=== PATIENT | female | born 1980 | race Caucasian/White ===

== ENCOUNTER 2017-02-26 00:44 | Emergency (ER) | payer OTHER ==
[~2017-02-26] VITALS: Ht 152.4 cm; Wt 102.1 kg
[~2017-02-26 00:44] MED LIST: IBU-8800 MG PO; PREDNISONE20 MG PO; ROBITUSSIN AC 110 ML PO; SOMA350 MG PO; TRAMADOL HCL50 MG PO; ZITHROMAX Z PA250 MG PO
[2017-02-26] MEDS ORDERED: PROAIR HFA8.5 GM INH (01:53)
[2017-02-26] MEDS ORDERED: PREDNISONE10 MG PO (01:53)
== END 2017-02-26 02:52 | disposition home or self-care (01) ==
LOC: ED 00:44
DX: J45.901 Unspecified asthma with (acute) exacerbation (principal); F17.200 Nicotine dependence, unspecified, uncomplicated

== ENCOUNTER 2017-02-28 10:33 | Inpatient (IN) | payer OTHER ==
[~2017-02-28] VITALS: Ht 152.4 cm; Wt 110.7 kg
--- NOTE | ~2017-02-28 | PR ---
[place], [place] PROGRESS NOTE NAME: MANUEL MUSA UNIT #: [id number] ROOM: 407 DOCTOR: KERRIE BEASLEY MD BIRTHDATE: [birth year] DOS: 03/02/2017 PULMONARY FOLLOWUP NOTE SUBJECTIVE: The patient has been noted with partial reduction in the respiratory symptoms from yesterday, was continued on high dose of corticosteroids, bronchodilator for the patient frequently and the antibiotics as well. The coughing has been noted somewhat decreased with reduction in the wheezing and shortness of breath. OBJECTIVE: VITAL SIGNS: Showed normal temperature, respiratory rate 18, heart rate 74, blood pressure 129/70. Pulse oxygen saturation noted on 2 liters nasal cannula 96% saturation. HEENT: Head was atraumatic. Moderate obesity. NECK: Supple. CARDIOVASCULAR SYSTEM: S1, S2 audible. LUNGS: Diffuse expiratory wheezing was noted with partial reduction as compared to previous examination. There were no crackles. ABDOMEN: Soft, nontender. LABORATORY DATA: CBC, 03/02/2017, WBC count 18.9. Remaining CBC was normal. Culture of the sputum for the patient preliminary showing normal reginaldo from yesterday. Gram stain shows moderate white blood cells, few epithelial cells, moderate gram-positive cocci in pairs and clusters with moderate gram-positive bacilli. CT of the was noted unremarkable for any cardiopulmonary abnormality or any evidence of pulmonary embolism. IMPRESSION: The patient with severe acute exacerbation of bronchial asthma for this patient with acute tracheobronchitis with partial improvement occurred from yesterday with current plan of treatment. PLAN OF TREATMENT: No changes in the plan for this patient. Continue current dose of steroids. No changes need to be made. Other supportive therapy, plan of care. Usual treatment. Supportive plan of management as previously in progress. [place], [place] PROGRESS NOTE NAME: MANUEL MUSA UNIT #: [id number] ROOM: 407 DOCTOR: KERRIE BEASLEY MD BIRTHDATE: [birth year] KERRIE BATES MD CM:PNTRANS [id number] KERRIE STANFORD MD 03/03/17 0053 interface
--- NOTE | ~2017-02-28 | CON ---
[place], [place] REPORT OF CONSULTATION NAME: [id number] UNIT #: [id number] ROOM: 407 DOCTOR: PAULO STANFORD MDKERRIE BIRTHDATE: [birth year] DOS: 03/01/2017 PULMONARY CONSULTATION EVALUATION AND MANAGEMENT CONSULTATION REQUESTED BY: Hospitalist services. REASON FOR CONSULTATION: Assess the patient for ongoing acute respiratory complaints. HISTORY OF PRESENT ILLNESS: This is a 36 years old white female without any known diagnosis of COPD, bronchial asthma, presented to the emergency room. The patient developed symptoms of increased chest congestion, coughing since last Tuesday. The symptoms have been noted progressive worsening with the cough which was noted nonproductive and noted severe. The patient has been noted symptoms of wheezing with that, which is described as severe with the tightness in the chest. Shortness of breath was occurring with [id number] exertional activities. The patient denies any symptoms of hemoptysis. She has been treated with the corticosteroids high dose for the patient and noted ongoing acute exacerbation of bronchial asthma. REVIEW OF SYSTEMS: CONSTITUTIONAL SYMPTOMS: Fatigue and tiredness noted without symptoms of fever or chills. EYES: Denies any burning, redness, or tenderness. EARS, NOSE, AND THROAT SYMPTOMS: No sore throat, hoarseness, otalgia, postnasal drainage or epistaxis. CARDIOVASCULAR SYSTEM: Denies anginal pain, edema or pain of the lower extremities. GASTROINTESTINAL SYMPTOMS: Denies dysphagia, nausea, vomiting, diarrhea, abdominal pain, hematemesis, melena, or hematochezia. SKIN: Denies lesions or rashes. MUSCULOSKELETAL SYMPTOMS: Denies acute joint pain, redness, or tenderness. CENTRAL NERVOUS SYSTEM: Denies dizziness, headache, diplopia, syncopal episodes or seizures. Remaining systems were reviewed and they are noted all negative. PAST MEDICAL HISTORY: 1. Was noted for the patient history of recurrent bronchitis described twice a week. 2. History of chronic nicotine dependence. 3. Severe obesity. SOCIAL HISTORY: The patient stated that she is , has step children. Smoking was started for this patient at the age of 16-17 years old for this patient as 1 pack of cigarettes per day. PAST SURGICAL HISTORY: Noted tonsillectomy. FAMILY HISTORY: The patient's father for the patient age of [age] years old [place], [place] REPORT OF CONSULTATION NAME: MANUEL MUSA UNIT #: [id number] ROOM: 407 DOCTOR: KERRIE BEASLEY MD BIRTHDATE: [birth year] complication of pancreatic cancer. Mother is living of the patient history of morbid obesity and COPD. HOME MEDICATIONS: Noted, 1. ProAir HFA inhaler. 2. Tapering dose of prednisone recently prescribed. DRUG ALLERGIES: Noted for no known drug allergies. PHYSICAL EXAMINATION: GENERAL: This is a 36 years old white female who has been noted with audible wheezing at this time with mild tachypnea at rest. On examination height was noted 5 feet, weight of 244 pounds, BMI 47.6. VITAL SIGNS: For the patient which were recorded showed the temperature noted as normal. The respiratory rate of 18, heart rate of 80, blood pressure 136/82-146/72. Intake for the patient recorded 2470 mL, output 1150 mL. Pulse oxygen saturation 3 liters nasal cannula 96% saturation. HEENT: Examination shows head was atraumatic. Eyes nonicterus. NECK: Supple. CARDIOVASCULAR SYSTEM: S1, S2 is audible. LUNGS: The patient was noted without any crackles. Diffuse expiratory wheezing was noted in the lungs with reduced breath sounds bilaterally. ABDOMEN: Soft, obese, nontender. EXTREMITIES: Show no edema, clubbing, cyanosis. CENTRAL NERVOUS SYSTEM: Cranial nerves 2-12 intact. No focal deficits. MUSCULOSKELETAL SYMPTOMS: Without any acute deformities. LABORATORY DATA: The lactic acid 1.7 noted on admission 02/28/2017. 02/28/2017, PT, PTT was normal. CMP of the patient on 02/28/2017 noted as normal BUN and creatinine and the other labs. The CBC of patient on 02/28/2017, hemoglobin 19.4, 50.7, hematocrit 45.2, platelet count was normal. Troponin for the patient was noted as normal. The CBC of the patient that was done this morning, WBC count 15.6, remaining CBC was normal. CMP of the patient this morning, glucose 165, BUN and creatinine was normal. PT/INR for the patient this morning was noted as normal. The chest x-ray of the patient that was done for the patient on admission for the patient was essentially noted as hyperinflation without any acute pulmonary infiltration. IMPRESSION: 1. The patient who has been currently admitted to the hospital, appeared to have a severe acute exacerbation of bronchial asthma for the patient associated acute viral or bacterial bronchitis, which has noted progression for the past 3 days since admission. 2. Chronic tobacco use for this patient as well known. 3. Morbid obesity of the patient as well. PLAN OF TREATMENT: Continue current dose of corticosteroids. Nicotine replacement patches were ordered for this patient, but the patient does not wish to use them at that time. Symptomatic management of cough. Bronchodilator will be given for the patient every 4 hours and q. 2 hour p.r.n. Continuation of [place], [place] REPORT OF CONSULTATION NAME: MNAUEL MUSA UNIT #: [id number] ROOM: 407 DOCTOR: PAULO STANFORD MD,KERRIE BIRTHDATE: [birth year] current antibiotics. Sputum for Gram stain culture if the patient expectorates sputum. The cough has been mostly noted nonproductive. If the patient does not respond to the treatment in the next couple of days I will assess the patient for possible bronchoscopy. Other supportive therapy, plan of management, other care. Usual treatment, all other supportive care and treatments and therapies. KERRIE BATES MD CM:CONSTR:REPORT OF CONSULTATION 1429 03/02/17 0737 interface
--- NOTE | ~2017-02-28 | PR ---
[place], [place] PROGRESS NOTE NAME: MANUEL MUSA UNIT #: [id number] ROOM: 407 DOCTOR: PAULO STANFORD MD,KERRIE BIRTHDATE: [birth year] DOS: 03/03/2017 SUBJECTIVE: She has been noted with significant reduction and improvement and resolution of the acute symptoms. The patient with improvement, coughing, wheezing, and shortness breath. OBJECTIVE: VITAL SIGNS: Normal temperature, respiratory rate 18, heart rate 78, blood pressure . Pulse ox saturation on room air 97% saturation. HEENT: Showed no new change. NECK: Supple. CARDIOVASCULAR: S1, S2 audible. LUNGS: The patient was noted without any wheezing or crackles. ABDOMEN: Soft, nontender. IMPRESSION: Marked improvement and resolution of the acute severe bronchial asthma. The patient was noted with current medical management with progressive reduction and improvement in the symptoms. Acute bacterial bronchitis, also improving. PLAN OF TREATMENT: The patient could be considered for home discharge on oral antibiotics and tapering dose of prednisone. Other treatment for patient to be done as previously. Usual care. Supportive plan of management and therapies. KERRIE BATES MD CM:SAMI [id number] KERRIE STANFORD MD 03/03/17 2249 interface
[~2017-02-28 10:33] MED LIST changes: +PREDNISONE10 MG PO; +PROAIR HFA8.5 GM INH
[2017-02-28 10:45] VITALS: BP 175/105
[2017-02-28 11:07] LABS: HEMATOCRIT 45.2 % (37.0-47.0); HEMOGLOBIN 15.7 g/dl (12.0-16.0); MEAN CELL VOLUME 85.1 fl (81.0-99.0); MEAN CORPUSCULAR HGB 29.6 pg (27.0-31.0); MEAN CORPUSCULAR HGB CONC 34.7 g/dl (33.0-37.0); MEAN PLATELET VOLUME 10.4 fl (9.6-12.3); PLATELET COUNT AUTOMATED 350 10*3/uL (130-400); RED BLOOD COUNT 5.31 10*6/uL (4.10-5.10); RED CELL DISTRI WIDTH 13.3 % (0-14.5); WHITE BLOOD COUNT 19.4 10*3/uL (4.8-10.8)
[2017-02-28 11:16] LABS: INTERNATIONAL NORM RATIO 0.9 (2.0-3.5); PROTHROMBIN TIME 9.8 SECONDS (9.0-12.4)
[2017-02-28 11:24] LABS: ALBUMIN 3.9 gm/dl (3.1-4.5); ALKALINE PHOSPHATASE 87 U/L (45-117); BILIRUBIN, TOTAL 0.3 mg/dl (0.2-1.0); BUN 18 mg/dl (7-24); C-REACTIVE PROTEIN 0.37 MG/DL (0-0.3); CARBON DIOXIDE 22 mmol/L (21-32); CHLORIDE 111 mmol/L (98-107); CKMB 0.6 ng/ml (0.5-3.6); CPK 103 U/L (26-192); EST GLOM FILT AFRICAN AMERICAN > 60 ml/min; GLUCOSE 72 mg/dL (65-99); MAGNESIUM 2.6 mg/dL (1.5-2.1); POTASSIUM 3.8 mmol/L (3.5-5.1); SGOT/AST 9 IU/L (3-35); SGPT/ALT 17 U/L (12-78); SODIUM 144 mmol/L (136-145); TOTAL PROTEIN 7.6 gm/dL (6.4-8.2); TROPONIN I < 0.015 ng/ml (<0.045)
[2017-02-28 11:25] LABS: ATYPICAL LYMPHS 2 % (0-0); EOSINOPHIL # 0.2 10*3/uL (0-0.4); EOSINOPHILS 1 % (1-4); LYMPHOCYTE # 6.4 10*3/uL (1.3-4.4); MONOCYTE # 1.4 10*3/uL (0.1-1.0); NEUTROPHIL # 11.4 10*3/uL (2.3-7.9); NEUTROPHILS 59 % (47-73); PLATELET SUFFICIENCY NORMAL (NORMAL); TOTAL CELLS COUNTED 100 #CELLS
[2017-02-28 12:51] VITALS: BP 124/71
[2017-02-28 13:33] VITALS: BP 128/92
[2017-02-28 16:00] VITALS: BP 142/73
[2017-02-28 20:00] VITALS: BP 174/76
[2017-03-01] VITALS: BP 153/74
[2017-03-01 07:08] LABS: HEMATOCRIT 41.3 % (37.0-47.0); IG # 0.1 10*3/uL (0.0-0.1); LYMPH # 1.7 10*3/uL (1.3-4.4); LYMPH % 10.8 % (27.0-41.0); MEAN CELL VOLUME 87.7 fl (81.0-99.0); MEAN CORPUSCULAR HGB 29.7 pg (27.0-31.0); MEAN CORPUSCULAR HGB CONC 33.9 g/dl (33.0-37.0); MEAN PLATELET VOLUME 10.7 fl (9.6-12.3); MONO # 0.2 10*3/uL (0.1-1.0); NEUT # 13.6 10*3/uL (2.3-7.9); NEUT % 87.5 % (47.0-73.0); PLATELET COUNT AUTOMATED 273 10*3/uL (130-400); RED BLOOD COUNT 4.71 10*6/uL (4.10-5.10); RED CELL DISTRI WIDTH 13.6 % (0-14.5); WHITE BLOOD COUNT 15.6 10*3/uL (4.8-10.8)
[2017-03-01 07:25] LABS: ALBUMIN 3.4 gm/dl (3.1-4.5); BILIRUBIN, TOTAL 0.3 mg/dl (0.2-1.0); BUN 18 mg/dl (7-24); CARBON DIOXIDE 21 mmol/L (21-32); CHLORIDE 108 mmol/L (98-107); CHOLESTEROL 238 mg/dL (<200); EST GLOM FILT AFRICAN AMERICAN > 60 ml/min; FREE T4 1.01 ng/dl (0.76-1.46); GLUCOSE 165 mg/dL (65-99); HDL CHOLESTEROL 60 mg/dl (40-60); LDL CHOLESTEROL 164 mg/dL (9-159); MAGNESIUM 2.5 mg/dL (1.5-2.1); POTASSIUM 4.2 mmol/L (3.5-5.1); SGOT/AST 6 IU/L (3-35); SGPT/ALT 17 U/L (12-78); SODIUM 141 mmol/L (136-145); TOTAL PROTEIN 6.8 gm/dL (6.4-8.2); TRIGLYCERIDES 72 mg/dl (<150); VLDL CHOLESTEROL 14 mg/dL (6-40)
[2017-03-01 07:29] LABS: ALKALINE PHOSPHATASE 73 U/L (45-117)
[2017-03-01 07:36] LABS: HEMOGLOBIN A1c 5.5 % (4.8-5.6)
[2017-03-01 07:46] LABS: PROTHROMBIN TIME 10.3 SECONDS (9.0-12.4)
[2017-03-01 08:00] VITALS: BP 146/72
[2017-03-01 08:05] LABS: FOLIC ACID 7.18 ng/mL (>5.38)
[2017-03-01 12:00] VITALS: BP 136/82
[2017-03-01 16:00] VITALS: BP 153/77
[2017-03-01 20:00] VITALS: BP 145/75
[2017-03-02] VITALS: BP 129/83
[2017-03-02 07:29] LABS: BASO % 0.1 % (0.0-1.0); HEMATOCRIT 41.7 % (37.0-47.0); HEMOGLOBIN 13.8 g/dl (12.0-16.0); IG # 0.2 10*3/uL (0.0-0.1); LYMPH # 1.7 10*3/uL (1.3-4.4); LYMPH % 8.8 % (27.0-41.0); MEAN CELL VOLUME 89.5 fl (81.0-99.0); MEAN CORPUSCULAR HGB 29.6 pg (27.0-31.0); MEAN CORPUSCULAR HGB CONC 33.1 g/dl (33.0-37.0); MEAN PLATELET VOLUME 10.4 fl (9.6-12.3); MONO # 0.5 10*3/uL (0.1-1.0); MONO % 2.4 % (3.0-9.0); NEUT # 16.6 10*3/uL (2.3-7.9); NEUT % 87.6 % (47.0-73.0); PLATELET COUNT AUTOMATED 302 10*3/uL (130-400); RED BLOOD COUNT 4.66 10*6/uL (4.10-5.10); RED CELL DISTRI WIDTH 13.6 % (0-14.5); WHITE BLOOD COUNT 18.9 10*3/uL (4.8-10.8)
[2017-03-02 08:00] VITALS: BP 129/70
[2017-03-02 12:00] VITALS: BP 186/79
[2017-03-02 16:00] VITALS: BP 157/86
[2017-03-02 20:00] VITALS: BP 153/82
[2017-03-03] VITALS: BP 142/78
[2017-03-03 08:00] VITALS: BP 152/76
[2017-03-03] MEDS ORDERED: PREDNISONE10 MG PO (10:03)
[2017-03-03] MEDS ORDERED: SIMVASTATIN20 MG PO (10:03)
[2017-03-03] MEDS ORDERED: D-1000 185 MG-11 TAB PO (10:03)
[2017-03-03] MEDS ORDERED: LEVAQUIN500 M2 PO (10:03)
[2017-03-03 12:00] VITALS: BP 146/76
== END 2017-03-03 12:54 | disposition home or self-care (01) | DRG 872 ==
LOC: ED 10:33 → EDHOLD 12:39 → 4E 12:39
PROVIDERS: Internal Medicine; Nurse Practitioner Family
DX: A41.9 Sepsis, unspecified organism (principal); J44.0 Chronic obstructive pulmonary disease with (acute) lower respiratory infection; J44.1 Chronic obstructive pulmonary disease with (acute) exacerbation; Z68.42 Body mass index [BMI] 45.0-49.9, adult; F17.210 Nicotine dependence, cigarettes, uncomplicated; Z80.0 Family history of malignant neoplasm of digestive organs; J20.9 Acute bronchitis, unspecified; Z71.6 Tobacco abuse counseling; E83.41 Hypermagnesemia; R79.82 Elevated C-reactive protein (CRP); E66.01 Morbid (severe) obesity due to excess calories

== ENCOUNTER 2017-03-08 10:13 | Inpatient (IN) | payer OTHER ==
[~2017-03-08] VITALS: Ht 152.4 cm; Wt 109.3 kg
--- NOTE | ~2017-03-08 | PR ---
[place], [place] PROGRESS NOTE NAME: MANUEL MUSA UNIT #: [id number] ROOM: 403 DOCTOR: KERRIE BEASLEY MD BIRTHDATE: [birth year] DOS: 03/10/2017 PULMONARY PROGRESS NOTE SUBJECTIVE: The patient had bronchoscopy done yesterday with significant reduction and improvement of respiratory symptoms noted. She denies symptoms of chest pain, coughing, wheezing, and other symptoms have been resolving progressively. OBJECTIVE: VITAL SIGNS: Shows normal temperature, respiratory rate 20, heart rate 70, blood pressure 135/73. The oxygen saturation of the patient was noted on room air as 98% saturation this morning. HEENT: Chronic moderate severe obesity. NECK: Supple. CARDIOVASCULAR: S1, S2 audible. LUNGS: Noted clear of any wheezing or crackles. ABDOMEN: Soft, nontender. LABORATORY DATA: Gram stain of the bronchial washing few white blood cells, epithelial cells with moderate gram-positive cocci, gram-positive bacilli, few gram-positive cocci in cluster, rare gram-negative bacilli, preliminary culture reported as normal reginaldo. The blood culture from the showed no bacterial growth. Final culture results were pending. IMPRESSION: 1. The patient with progressive resolution and improvement in the respiratory symptoms of acute exacerbation of bronchial asthma and acute bronchitis with removal of mucus plug of the major airways. 2. History of chronic morbid obesity. PLAN OF TREATMENT: From the pulmonary standpoint, she could be discharged on tapering dose of prednisone and any oral antibiotics for the patient. She should also be started on the Dulera for this patient, resume her medications in outpatient. Prescription to be given to the patient before discharge. Outpatient followup suggested in a couple of weeks post discharge from the hospital. [place], [place] PROGRESS NOTE NAME: MANUEL MUSA UNIT #: [id number] ROOM: 403 DOCTOR: KERRIE BEASLEY MD BIRTHDATE: [birth year] KERRIE BATES MD CM:PNTRANS [id number] KERRIE STANFORD MD 03/11/17 0520 interface
--- NOTE | ~2017-03-08 | CON ---
[place], [place] REPORT OF CONSULTATION [id number] #: [id number] ROOM: 403 DOCTOR: KERRIE BEASLEY MD BIRTHDATE: [birth year] DOS: 03/09/2017 PULMONARY CONSULTATION EVALUATION AND MANAGEMENT CONSULTATION ORDERED BY: Hospitalist services. REASON FOR CONSULTATION: To assess the patient for recurrent exacerbation of bronchial asthma. HISTORY OF PRESENT ILLNESS: This is a 36-year-old white female, very well known to me. The patient has been recently admitted in this hospital, treated for severe acute exacerbation of bronchial asthma. The patient was discharged home after 3 days of treatment with high dose steroids, which was gradually decreased, on oral prednisone, short acting bronchodilators and antibiotics. The patient discharged on 03/03/2017. She presented back to the hospital. The patient re-admitted to the hospital on 03/08/2017. The patient stated that the symptoms of shortness of breath has been noted significant worsening for this patient at home. She has been noted with increased shortness of breath. The patient with excessive severe coughing. Later on she started with wheezing for the patient as well, which has been noted progressive worsening with tightness in the chest. The patient was seen in the residents clinic for followup of exacerbation and was sent to the Emergency Room after assessment this patient because of acute exacerbation of COPD. The patient denies any symptoms of chest pain. She noted partial improvement in symptoms of wheezing and shortness of breath for this patient, but the improvement has been noted incomplete. The coughing has been still noted moderate severe and nonproductive at this time. The patient denies any symptoms of hemoptysis. She stated that she has been taking all of the prescription medications, which has been ordered previously for this patient upon discharge. REVIEW OF SYSTEMS: CONSTITUTIONAL: The patient noticed symptom of fatigue and tiredness. Denies any fever or chills. EYES: Denies any blurry vision dryness of the eyes, eye discharge or burning pain, EARS, NOSE, THROAT: No sore throat, hoarseness, otalgia, postnasal drainage. CARDIOVASCULAR: Denies anginal pain, edema or pain of the lower extremities. GASTROINTESTINAL: Denies dysphagia, nausea, vomiting, diarrhea, abdominal pain, hematemesis, melena, hematochezia, or abnormal weight loss history. History of chronic severe morbid obesity for the patient was known. SKIN: Denies lesions or rashes. MUSCULOSKELETAL: Denies any joint pain, redness, or tenderness. CENTRAL NERVOUS SYSTEM: Denies any dizziness, headache, diplopia or seizures. Remaining systems were reviewed with the patient, they were noted all negative. PAST MEDICAL HISTORY: 1. The patient is known with history of bronchial asthma, most likely uncomplicated, severe persistent bronchial asthma, ____ for further assessment. 2. History of past nicotine abuse. [place], [place] REPORT OF CONSULTATION NAME: MANUEL MUSA UNIT #: [id number] ROOM: [facility] DOCTOR: PAULO STANFORD MD,[facility] BIRTHDATE: [birth year] 3. Morbid obesity. SOCIAL HISTORY: The patient is . She lives at home. Denies any history of alcohol use or any illicit drug use. Tobacco use noted since age 14 or 15 years old, about a pack of cigarettes per day. PAST SURGICAL HISTORY: The patient noted with surgical history for tonsillectomy and adenoidectomy. FAMILY HISTORY: The patient's father at age of 5656 years old from complication of pancreatic cancer. Mother is living with severe morbid obesity and known history of COPD as well. HOME MEDICATIONS: Noted the recent dose of tapering prednisone and ProAir HFA inhaler. DRUG ALLERGIES: Noted. No known drug allergies. PHYSICAL EXAMINATION: GENERAL: A 36-year-old female, currently assessed, noted awake and alert. Height of 5 feet, weight of 109 kilograms, BMI 47.0. VITAL SIGNS: For the patient which were recorded shows the temperature of the patient noted as normal. The respiratory rate of the patient was recorded as 24-18. Heart rate for the patient recorded as 70-72. Blood pressure 124/82-134/81. HEENT: Shows head was atraumatic. Eyes nonicterus. NECK: Supple. CARDIOVASCULAR: S1, S2 is audible. LUNGS: The patient was noted without any crackles, or rhonchi. Moderate expiratory wheezing was present. ABDOMEN: Soft, obese, nontender. EXTREMITIES: Show no edema, clubbing or cyanosis. LABORATORY DATA: The patient's lactic acid yesterday on admission was normal at 1.8. PT/PTT yesterday on admission normal. CBC of the patient on 03/08/2017, WBC count 25.3, hemoglobin 16.8, hematocrit 47.7, platelet count normal. CMP of the patient was noted as normal BUN and creatinine. Remaining electrolytes grossly normal. Troponin was noted normal yesterday. CBC this morning, WBC count 23.2, hemoglobin and hematocrit were normal. Platelet count normal, 90% segmented neutrophils. BMP of the patient shows glucose 158, BUN and creatinine was normal. One view chest x-ray of the patient that was done yesterday, the patient, reviewed, does not show any acute pulmonary infiltration for this patient, area of atelectasis was suspected in the left lower lung. IMPRESSION: 1. The patient known to me currently admitted to the hospital noted with recurrent acute exacerbation of chronic obstructive pulmonary disease with additional area of atelectasis suspected, mucus impaction of major airways. 2. History of morbid obesity. 3. History of past nicotine abuse. [place], [place] REPORT OF CONSULTATION NAME: MANUEL MUSA UNIT #: [id number] ROOM: [facility] DOCTOR: KERRIE BEASLEY MD BIRTHDATE: [birth year] PLAN OF TREATMENT: The patient will benefit from fiberoptic bronchoscopy. The risks and benefits of the procedure were discussed with the patient. She has been kept n.p.o. past midnight and she was agreeable for the procedure. The consent was obtained for the procedure. The dose of corticosteroids at this time will be continued as previously ordered. Further changes in the medical management done accordingly. Continue current antibiotics. Repeat another chest x-ray for the patient tomorrow morning to reassess the current area of atelectasis. Leukocytosis is most likely induced by the corticosteroids. The patient will be continued to be monitored. Supportive therapy and the plan of management for the patient will continue. Usual care. All other treatment plan and management. Any decision or changes in the treatment necessary will be done after bronchoscopy. The patient has been started on Dulera as well for the long-term management of bronchial asthma in the patient, which will be continued post discharge as well. Thank you for allowing me to participate in the care of this patient. KERRIE BATES MD CM:CONSTR:REPORT OF CONSULTATION 1220 03/10/17 0512 interface
--- NOTE | ~2017-03-08 | PROC NOTE ---
[place], [place] PROCEDURE NOTE NAME: MANUEL MUSA UNIT #: [id number] ROOM: 403 DOCTOR: PAULO STANFORD MD,KERRIE BIRTHDATE: [birth year] DOS: 03/09/2017 PROCEDURE: Fiberoptic bronchoscopy. PREOPERATIVE DIAGNOSES: Persistent cough and wheezing in the patient without any sputum expectoration, ongoing bronchial asthma exacerbation, and significant leukocytosis. POSTOPERATIVE DIAGNOSES: Removal of multiple plugs and mucus from endobronchial tree bilaterally. FINDINGS: Acute tracheobronchitis. PROCEDURE DESCRIPTION: Informed consent obtained for the patient. She was brought to the OR and placed in supine position. Conscious sedation administered by the Anesthesia Department. After achieving appropriate sedation, airway introduced into the mouth. Bronchoscope advanced into the airway into laryngeal area. Epiglottis and vocal cords were seen. Vocal cords moving symmetrically with movements and yellowish in color. All secretions suctioned out with the help of normal saline wash and sent for cultures. The mucus plug for the patient from the right upper, right middle, right lower, left upper, lingular, and lower lobe. Procedure was well tolerated by the patient. Postoperative findings will be discussed with the patient once the patient recovers the effects of acute sedation. KERRIE BATES MD CM:PROCNOTE:PROCEDURE NOTE [id number] KERRIE STANFORD MD
[~2017-03-08 10:13] MED LIST changes: +D-1000 185 MG-11 TAB PO; +LEVAQUIN500 M2 PO; +SIMVASTATIN20 MG PO
[2017-03-08 10:15] VITALS: BP 115/60
[2017-03-08 10:55] LABS: HEMATOCRIT 47.7 % (37.0-47.0); HEMOGLOBIN 16.4 g/dl (12.0-16.0); MEAN CELL VOLUME 85.9 fl (81.0-99.0); MEAN CORPUSCULAR HGB 29.5 pg (27.0-31.0); MEAN CORPUSCULAR HGB CONC 34.4 g/dl (33.0-37.0); MEAN PLATELET VOLUME 10.1 fl (9.6-12.3); PLATELET COUNT AUTOMATED 354 10*3/uL (130-400); RED BLOOD COUNT 5.55 10*6/uL (4.10-5.10); RED CELL DISTRI WIDTH 13.2 % (0-14.5); WHITE BLOOD COUNT 25.3 10*3/uL (4.8-10.8)
[2017-03-08 11:04] LABS: INTERNATIONAL NORM RATIO 0.9 (2.0-3.5); PROTHROMBIN TIME 9.8 SECONDS (9.0-12.4)
[2017-03-08 11:14] LABS: ALBUMIN 3.5 gm/dl (3.1-4.5); ALKALINE PHOSPHATASE 75 U/L (45-117); ATYPICAL LYMPHS 1 % (0-0); BILIRUBIN, TOTAL 0.5 mg/dl (0.2-1.0); BUN 21 mg/dl (7-24); CARBON DIOXIDE 23 mmol/L (21-32); CHLORIDE 106 mmol/L (98-107); CPK 24 U/L (26-192); EOSINOPHIL # 0.5 10*3/uL (0-0.4); EOSINOPHILS 2 % (1-4); EST GLOM FILT AFRICAN AMERICAN > 60 ml/min; GLUCOSE 82 mg/dL (65-99); LYMPHOCYTE # 7.1 10*3/uL (1.3-4.4); MONOCYTE # 1.5 10*3/uL (0.1-1.0); NEUTROPHIL # 16.2 10*3/uL (2.3-7.9); NEUTROPHILS 64 % (47-73); PLATELET SUFFICIENCY NORMAL (NORMAL); POTASSIUM 4.1 mmol/L (3.5-5.1); SGOT/AST 5 IU/L (3-35); SGPT/ALT 23 U/L (12-78); SODIUM 138 mmol/L (136-145); TOTAL CELLS COUNTED 100 #CELLS
[2017-03-08 11:17] LABS: C-REACTIVE PROTEIN < 0.29 MG/DL (0-0.3); CKMB < 0.5 ng/ml (0.5-3.6); TROPONIN I < 0.015 ng/ml (<0.045)
[2017-03-08 11:49] VITALS: BP 124/82
[2017-03-08 12:11] VITALS: BP 131/78
[2017-03-08 12:19] LABS: MAGNESIUM 2.6 mg/dL (1.5-2.1)
[2017-03-08] MEDS ORDERED: NEBULIZER (15:38)
[2017-03-08 20:00] VITALS: BP 151/87
[2017-03-09] VITALS (8 sets, daily range): BP systolic 124–172; BP diastolic 54–98
[2017-03-09 06:47] LABS: HEMATOCRIT 44.3 % (37.0-47.0); MEAN CELL VOLUME 87.5 fl (81.0-99.0); MEAN CORPUSCULAR HGB 29.6 pg (27.0-31.0); MEAN CORPUSCULAR HGB CONC 33.9 g/dl (33.0-37.0); MEAN PLATELET VOLUME 10.2 fl (9.6-12.3); PLATELET COUNT AUTOMATED 316 10*3/uL (130-400); RED BLOOD COUNT 5.06 10*6/uL (4.10-5.10); RED CELL DISTRI WIDTH 13.4 % (0-14.5); WHITE BLOOD COUNT 23.2 10*3/uL (4.8-10.8)
[2017-03-09 06:59] LABS: BUN 21 mg/dl (7-24); CARBON DIOXIDE 24 mmol/L (21-32); CHLORIDE 105 mmol/L (98-107); EST GLOM FILT AFRICAN AMERICAN > 60 ml/min; GLUCOSE 158 mg/dL (65-99); POTASSIUM 4.5 mmol/L (3.5-5.1); SODIUM 139 mmol/L (136-145)
[2017-03-09 07:13] LABS: LYMPHOCYTE # 1.4 10*3/uL (1.3-4.4); MONOCYTE # 0.5 10*3/uL (0.1-1.0); NEUTROPHIL # 21.3 10*3/uL (2.3-7.9); NEUTROPHILS 92 % (47-73); PLATELET SUFFICIENCY NORMAL (NORMAL); TOTAL CELLS COUNTED 100 #CELLS
[2017-03-10] VITALS: BP 155/54
[2017-03-10 08:00] VITALS: BP 135/73
[2017-03-10] MEDS ORDERED: DULE1ARO INH (10:13)
[2017-03-10] MEDS ORDERED: PANTOPRAZOLE SO40 MG PO (10:13)
[2017-03-10] MEDS ORDERED: VENTOLIN H0.09 MG/AC INH (10:13)
[2017-03-10] MEDS ORDERED: DUONEB 3 MG/3 ML3 M1 NEB (10:13)
[2017-03-10] MEDS ORDERED: PREDNISONE10 MG PO (10:13)
[2017-03-10] MEDS ORDERED: MONTELUKAST SOD10 MG PO (10:40)
[2017-03-10 12:00] VITALS: BP 162/88
[2017-03-10 16:10] LABS: ACID FAST SPEC PROCESSING Concentration (.)
== END 2017-03-10 14:50 | disposition home or self-care (01) | DRG 202 ==
LOC: ED 10:13 → EDSTATUS 10:13 → 4E 10:32 → EDHOLD 10:32 → 4E 11:48 → RESCLI 13:13 → 4E 03-09 13:29
PROVIDERS: Emergency Medicine; Internal Medicine Critical Care Medicine; Internal Medicine Hospice and Palliative Medicine
PROC: 0BC58ZZ Extirpation of Matter from Right Middle Lobe Bronchus, Via Natural or Artificial Opening Endoscopic (ICD-10-PCS; principal; 2017-03-09)
PROC: 0BC98ZZ Extirpation of Matter from Lingula Bronchus, Via Natural or Artificial Opening Endoscopic (ICD-10-PCS; principal; 2017-03-09)
PROC: 0BC48ZZ Extirpation of Matter from Right Upper Lobe Bronchus, Via Natural or Artificial Opening Endoscopic (ICD-10-PCS; principal; 2017-03-09)
PROC: 0BC68ZZ Extirpation of Matter from Right Lower Lobe Bronchus, Via Natural or Artificial Opening Endoscopic (ICD-10-PCS; principal; 2017-03-09)
PROC: 0BC88ZZ Extirpation of Matter from Left Upper Lobe Bronchus, Via Natural or Artificial Opening Endoscopic (ICD-10-PCS; principal; 2017-03-09)
DX: J45.41 Moderate persistent asthma with (acute) exacerbation (principal); J44.0 Chronic obstructive pulmonary disease with (acute) lower respiratory infection; R65.10 Systemic inflammatory response syndrome (SIRS) of non-infectious origin without acute organ dysfunction; E83.41 Hypermagnesemia; Z68.42 Body mass index [BMI] 45.0-49.9, adult; J44.1 Chronic obstructive pulmonary disease with (acute) exacerbation; J20.9 Acute bronchitis, unspecified; E66.01 Morbid (severe) obesity due to excess calories; F17.210 Nicotine dependence, cigarettes, uncomplicated; Z71.6 Tobacco abuse counseling; Z80.0 Family history of malignant neoplasm of digestive organs; Z82.5 Family history of asthma and other chronic lower respiratory diseases

== ENCOUNTER → 2017-03-15 | Outpatient (CLI) | payer OTHER ==
[~2017-03-15] MED LIST changes: +DULE1ARO INH; +DUONEB 3 MG/3 ML3 M1 NEB; +MONTELUKAST SOD10 MG PO; +NEBULIZER; +PANTOPRAZOLE SO40 MG PO; +VENTOLIN H0.09 MG/AC INH
== END | disposition home or self-care (01) ==
LOC: RESCLI 02:37
DX: J45.50 Severe persistent asthma, uncomplicated (principal); E66.01 Morbid (severe) obesity due to excess calories; E78.5 Hyperlipidemia, unspecified; Z72.0 Tobacco use

== ENCOUNTER 2017-04-02 18:03 | Emergency (ER) | payer OTHER ==
[2017-04-02 18:26] LABS: BASO % 0.3 % (0.0-1.0); EOS # 0.2 10*3/uL (0.0-0.4); EOS % 2.4 % (1.0-4.0); HEMATOCRIT 39.8 % (37.0-47.0); HEMOGLOBIN 13.4 g/dl (12.0-16.0); LYMPH # 2.1 10*3/uL (1.3-4.4); LYMPH % 21.8 % (27.0-41.0); MEAN CORPUSCULAR HGB CONC 33.7 g/dl (33.0-37.0); MEAN PLATELET VOLUME 9.4 fl (9.6-12.3); MONO # 0.5 10*3/uL (0.1-1.0); MONO % 5.3 % (3.0-9.0); NEUT # 6.8 10*3/uL (2.3-7.9); NEUT % 69.8 % (47.0-73.0); PLATELET COUNT AUTOMATED 281 10*3/uL (130-400); RED BLOOD COUNT 4.47 10*6/uL (4.10-5.10); RED CELL DISTRI WIDTH 13.8 % (0-14.5); WHITE BLOOD COUNT 9.8 10*3/uL (4.8-10.8)
[2017-04-02 18:41] LABS: INTERNATIONAL NORM RATIO 0.9 (2.0-3.5); PROTHROMBIN TIME 9.4 SECONDS (9.0-12.4)
[2017-04-02 18:42] LABS: ALBUMIN 3.3 gm/dl (3.1-4.5); ALKALINE PHOSPHATASE 78 U/L (45-117); BILIRUBIN, TOTAL 0.4 mg/dl (0.2-1.0); BUN 13 mg/dl (7-24); CARBON DIOXIDE 24 mmol/L (21-32); CHLORIDE 109 mmol/L (98-107); EST GLOM FILT AFRICAN AMERICAN > 60 ml/min; GLUCOSE 154 mg/dL (65-99); POTASSIUM 3.5 mmol/L (3.5-5.1); SGOT/AST 10 IU/L (3-35); SGPT/ALT 23 U/L (12-78); SODIUM 146 mmol/L (136-145); TOTAL PROTEIN 6.8 gm/dL (6.4-8.2)
[2017-04-02] MEDS ORDERED: ANAPROX DS550 MG PO (20:44)
[2017-04-02] MEDS ORDERED: CEFADROXIL500 M1 PO (20:44)
== END 2017-04-02 21:09 | disposition home or self-care (01) ==
LOC: ED 18:03
PROVIDERS: Physician Assistant
DX: M79.602 Pain in left arm (principal); M79.89 Other specified soft tissue disorders; F17.200 Nicotine dependence, unspecified, uncomplicated

== ENCOUNTER → 2017-04-05 | Outpatient (CLI) | payer OTHER ==
[~2017-04-05] MED LIST changes: +ANAPROX DS550 MG PO; +CEFADROXIL500 M1 PO
== END | disposition home or self-care (01) ==
LOC: RESCLI 03:53
DX: J45.50 Severe persistent asthma, uncomplicated (principal); K21.9 Gastro-esophageal reflux disease without esophagitis; E78.5 Hyperlipidemia, unspecified; E66.01 Morbid (severe) obesity due to excess calories

== ENCOUNTER → 2017-05-03 | Outpatient (CLI) | payer OTHER | END | disposition home or self-care (01) | LOC: CP 12:05 | DX: J45.50 Severe persistent asthma, uncomplicated (principal) ==

== ENCOUNTER 2017-05-11 02:36 | Inpatient (IN) | payer OTHER ==
[~2017-05-11] VITALS: Ht 152.4 cm; Wt 118.8 kg
--- NOTE | ~2017-05-11 | PR ---
[place], [place] PROGRESS NOTE NAME: MANUEL MUSA UNIT #: [id number] ROOM: 412 DOCTOR: KERRIE BEASLEY MD BIRTHDATE: [birth year] DOS: 05/13/2017 SUBJECTIVE: She has been noted reduction in the wheezing, shortness of breath and cough, which showed nonproductive in the last 24 hours. She was continued on high dose corticosteroids in the last 24 hours. Continued antibiotics and bronchodilators. She denies any symptoms of chest pain. Currently, seems comfortably sitting on the chair this morning at the time of the assessment. OBJECTIVE: VITAL SIGNS: This morning, normal temperature, respiratory rate of 20, heart rate of 90, blood pressure 146/80. Intake for the patient is 1680 mL, the output were not recorded, pulse oxygen saturation on room air 96% saturation. HEENT: Examination shows no new change. NECK: Supple. CARDIOVASCULAR: S1, S2 audible. LUNGS: Noted with moderate decreased breath sounds with reduction of the wheezing. The wheezing was still not noted or resolved. ABDOMEN: Soft, nontender. LABORATORY DATA: CBC today: WBC count 17,000 with 95% segmented neutrophils. Remaining CBC normal. CMP of the patient this morning, glucose of 194, BUN and creatinine normal. Remaining CMP was normal. IMPRESSION: 1. The patient with acute tracheobronchitis with acute exacerbation of uncomplicated severe persistent bronchial asthma. 2. History of allergic rhinitis. 3. Leukocytosis induced by the current corticosteroids. PLAN OF TREATMENT: Reduce the dose of corticosteroids today, 40 mg Solu-Medrol q.8h. from 80 mg q.8h. Monitor respiratory status after reduction of the corticosteroids. Continue bronchodilators, oxygen supplementation, antibiotics, and other treatments. [place], [place] PROGRESS NOTE NAME: MANUEL MUSA UNIT #: [id number] ROOM: 412 DOCTOR: KERRIE BEASLEY MD BIRTHDATE: [birth year] KERRIE BATES MD CM:PNTRANS [id number] KERRIE STANFORD MD 05/18/17 1147 interface
--- NOTE | ~2017-05-11 | PR ---
[place], [place] PROGRESS NOTE NAME: MANUEL MUSA UNIT #: [id number] ROOM: 412 DOCTOR: PAULO STANFORD MD,KERRIE BIRTHDATE: [birth year] DOS: 05/14/2017 PULMONARY FOLLOWUP SUBJECTIVE: She has been noted comfortable at this time without any distress. The patient denies symptoms of chest pain or any abdominal pain. The IgE level of the patient, which was obtained for the patient was noted as normal. OBJECTIVE: VITAL SIGNS: Showed normal temperature, respiratory rate 20, heart rate 84, blood pressure 137/76 to 131/74. Intake for the patient is 1180 mL, output was not recorded. Pulse oxygen saturation on room air was 100% saturation. HEENT: Showed no new change. NECK: Supple. CARDIOVASCULAR: S1, S2 is audible. LUNGS: Noted without any wheeze or crackles at the present time. ABDOMEN: Soft, nontender and obese. LABORATORY DATA: The IgE level were noted normal. BMP of the patient on 05/14/2017, glucose 190, BUN and creatinine were normal, remaining labs were normal. CBC: WBC count 18.6, hemoglobin, hematocrit and platelet count were noted as normal. IMPRESSION: The patient with acute exacerbation of uncomplicated severe persistent bronchial asthma, currently treated with corticosteroids, gradual response to the treatment was noted. PLAN OF MANAGEMENT: Further reduction of the dose of Solu-Medrol for this patient. Continuation of the treatment therapy, plan of management. Usual care. All other supportive plan of care and treatments. KERRIE BATES MD CM:PNTRANS 1424 [id number] KERRIE STANFORD MD 05/14/17 1528 interface
--- NOTE | ~2017-05-11 | PR ---
[place], [place] PROGRESS NOTE NAME: MANUEL MUSA UNIT #: [id number] ROOM: 412 DOCTOR: PAULO STANFORD MD,KERRIE BIRTHDATE: [birth year] DOS: 05/15/2017 SUBJECTIVE: She continued to do well from the pulmonary standpoint. She does not have any venous access yesterday. Intravenous Solu-Medrol, the patient has been discontinued. The patient started on oral prednisone. She has been noted with increased edema of the lower extremity. The coughing, wheezing, and other symptoms have been resolving. OBJECTIVE: VITAL SIGNS: Normal temperature, respiratory rate 20, heart rate 80, blood pressure 138/91. Pulse oxygen saturation on room air 97% saturation recorded. HEENT: Showed head was atraumatic. Eyes nonicterus. NECK: Supple. CARDIOVASCULAR: S1, S2 audible. LUNGS: Noted minimal wheezing in the lungs, the patient noted bilaterally. ABDOMEN: Soft. Nontender. EXTREMITIES: Show moderate edema. IMPRESSION: 1. The patient who has been currently noted with resolving acute exacerbation of uncomplicated severe persistent bronchial asthma. 2. At the present time, acute edema of the lower extremity most likely related to the use of the corticosteroids as well rather than any congestive heart failure. 3. Chronic morbid obesity. PLAN OF TREATMENT: The patient will be considered for possible discharge. In the morning, she has been given intervenous Lasix yesterday, prednisone has been switched to the oral prednisone 60 mg daily dose. It will be gradually tapered off. Continue all other previous treatment in the meantime. Usual care. KERRIE BATES MD CM:PNTRANS [id number] KERRIE STANFORD MD 05/15/17 2321 interface
--- NOTE | ~2017-05-11 | PR ---
[place], [place] PROGRESS NOTE NAME: MANUEL MUSA UNIT #: [id number] ROOM: 412 DOCTOR: PAULO STANFORD MD,KERRIE BIRTHDATE: [birth year] DOS: 05/16/2017 SUBJECTIVE: She was still noted with moderate edema of lower extremities and mild redness of the lower extremities as well. She was planned for ultrasound of the lower extremities to be done today and was continued on diuretics and other medical management. OBJECTIVE: VITAL SIGNS: Normal temperature, respiratory rate 18, heart rate 79 and blood pressure 137/79. Intake is 780, output was not recorded. Pulse oxygen saturation on room air was 98% saturation. HEENT: No acute change. NECK: Supple. CARDIOVASCULAR: S1, S2 audible. LUNGS: The patient was noted without any wheezing or crackles at the present time. ABDOMEN: Soft, nontender. EXTREMITIES: Show edema of the lower extremities as previously noted. IMPRESSION: 1. Resolving acute exacerbation of bronchial asthma and acute tracheobronchitis of the patient progressively. 2. Edema of the lower extremities, most likely related to corticosteroids. The patient has ultrasound of the lower extremities ordered as well as to rule out deep vein thrombosis. PLAN OF TREATMENT: No changes from pulmonary standpoint with continuation of oral prednisone for this patient. Continue bronchodilators, oxygen supplementation and other therapies as in progress. KERRIE BATES MD CM:PNTRANS [id number] KERRIE STANFORD MD 05/16/17 1031 interface
--- NOTE | ~2017-05-11 | CON ---
[place], [place] REPORT OF CONSULTATION NAME: MANUEL MUSA UNIT #: [id number] ROOM: 412 DOCTOR: KERRIE BEASLEY MD BIRTHDATE: [birth year] DOS: 05/12/2017 PULMONARY CONSULTATION, EVALUATION AND MANAGEMENT The consultation requested by the hospitalist services that was completed on 05/12/2017. REASON FOR CONSULTATION: Assess the patient for acute exacerbation of bronchial asthma. HISTORY OF PRESENT ILLNESS: This is a 36-year-old white female with known history of uncomplicated severe persistent bronchial asthma and allergic rhinitis, presented to the Emergency Room. Yesterday, the patient developed this progressive increased respiratory symptom. She has been noted with symptoms of increased coughing, shortness breath that has been gradually developing and worsening in the last 3 days. The patient denies any symptoms of chest pain. Shortness of breath has been noted with nonproductive cough and severe expiratory wheezing and tightness in the chest. There was no chest pain. Denies symptoms of hemoptysis. The patient has been admitted to the hospital currently and treated for acute exacerbation of bronchial asthma with acute tracheobronchitis. REVIEW OF SYSTEMS: CONSTITUTIONAL: Fatigue and tiredness noted without symptoms of fever or chills. EYES: Denies any burning, redness, or tenderness. EARS, NOSE, THROAT: Denies sore throat, hoarseness, otalgia, postnasal drainage or epistaxis. CARDIOVASCULAR: Denies anginal pain, edema or pain of the lower extremities. GASTROINTESTINAL: Denies dysphagia, nausea, vomiting, diarrhea, abdominal pain, hematemesis, melena, or any abnormal weight loss. SKIN: Denies lesions or rashes. GENITOURINARY: Denies dysuria, suprapubic pain, or hematuria. MUSCULOSKELETAL: Denies acute joint pain, redness, or tenderness. Remaining systems were reviewed with the patient, they were noted all negative. PAST MEDICAL HISTORY: 1. Noted with previous hospitalization in this hospital for the medical management of acute exacerbation of bronchial asthma and tracheobronchitis in 02/2017. 2. History of uncomplicated severe persistent bronchial asthma. 3. Allergic rhinitis. 4. History of morbid obesity. 5. Nicotine dependence. SOCIAL HISTORY: The patient is and lives at home. Denies history of alcohol use, illicit drug use. Tobacco use noted since age of [age] years old, pack of cigarettes per day that was discontinued in 02/2017. She does have pets at home. [place], [place] REPORT OF CONSULTATION NAME: MANUEL MUSA UNIT #: [id number] ROOM: [facility] DOCTOR: PAULO STANFORD MD,KERRIE BIRTHDATE: [birth year] PAST SURGICAL HISTORY: 1. Noted as fiberoptic bronchoscopy that was done in 02/2017. 2. T and A. FAMILY HISTORY: Father at 56 years old, complications related to pancreatic cancer. Mother is living with history of chronic obesity and bronchial asthma. MEDICATIONS: The current medications which have been listed are vitamin D, Lovenox, Mucinex, Solu-Medrol 80 mg q.8 hours, Levaquin, and other p.r.n. medications administration. The patient is also receiving IV Levaquin. Home medications noted as use of Dulera, Singulair, Protonix, Ventolin HFA inhaler, and DuoNeb treatments. DRUG ALLERGIES: No known drug allergies. PHYSICAL EXAMINATION: GENERAL: This is a 36-year-old female who has been currently noted to be awake and alert without any distress. Height of 5 feet, weight of 262 pounds, BMI of 51. VITAL SIGNS: Shows normal temperature, respiratory rate 20-22, heart rate of 82-86, blood pressure 145/97-140/80. HEENT: Examination shows head was atraumatic. Eyes nonicterus. NECK: Supple. CARDIOVASCULAR: S1, S2 is audible. LUNGS: Noted as diffuse expiratory wheezing in the lungs. ABDOMEN: Soft, nontender and obese. EXTREMITIES: Shows no edema, clubbing or cyanosis. CENTRAL NERVOUS SYSTEM: Cranial nerves 2-12 intact. No focal deficits. MUSCULOSKELETAL: No deformities. SKIN: No lesions or rashes. LABORATORY DATA: CMP on 05/11/2017 noted as normal. PT and PTT on 05/11/2017 admission normal. Lactic acid on admission normal at 1.1. CBC on admission: Eosinophils were noted as 5.8%. Remaining CBC was normal. CMP: This morning, repeated glucose 170, phosphorus 2.3. CBC: This morning, WBC count 13.5, hemoglobin and hematocrit normal. Platelet count was normal. PT/PTT repeated again was noted as normal. Chest x-ray that was done in the Emergency Room yesterday was reviewed and noted without any acute pulmonary infiltration with personal review. IMPRESSION: 1. The patient who has been currently admitted to the hospital with recurrence of acute exacerbation of uncomplicated severe persistent bronchial asthma with acute bronchitis, viral, bacterial, or secondary allergen exposure was likely. 2. The patient with history of chronic morbid obesity as well and allergic rhinitis. PLAN OF MANAGEMENT: She has been ordered Solu-Medrol 80 mg hours, which will be continued as previously ordered with frequent use of bronchodilators. The [place], [place] REPORT OF CONSULTATION NAME: MANUEL MUSA UNIT #: [id number] ROOM: 412 DOCTOR: PAULO STANFORD MD,KERRIE BIRTHDATE: [birth year] oxygen supplementation in case if the oxygen saturation noted less than 90%. Continuation of Levaquin as an antibiotic. Ordered IgE level for the patient as well. Assess the patient for further assessment for possible use of different other medications to control the bronchial asthma. Assess the home environment, potential allergens including for pets. Skin allergy testing could be obtained as well. The patient may benefit from treatment with biological agent, medications such as Nucala as well as Xolair. KERRIE BATES MD CM:CONSTR:REPORT OF CONSULTATION 1108 05/12/17 1408 interface
[2017-05-11 11:35] LABS: BASO # 0.1 10*3/uL (0.0-0.1); BASO % 0.6 % (0.0-1.0); EOS # 0.6 10*3/uL (0.0-0.4); EOS % 5.8 % (1.0-4.0); HEMOGLOBIN 13.9 g/dl (12.0-16.0); LYMPH # 2.5 10*3/uL (1.3-4.4); LYMPH % 25.5 % (27.0-41.0); MEAN CELL VOLUME 88.6 fl (81.0-99.0); MEAN CORPUSCULAR HGB 29.3 pg (27.0-31.0); MEAN CORPUSCULAR HGB CONC 33.1 g/dl (33.0-37.0); MEAN PLATELET VOLUME 9.6 fl (9.6-12.3); MONO # 0.4 10*3/uL (0.1-1.0); MONO % 4.3 % (3.0-9.0); NEUT # 6.2 10*3/uL (2.3-7.9); NEUT % 63.6 % (47.0-73.0); PLATELET COUNT AUTOMATED 271 10*3/uL (130-400); RED BLOOD COUNT 4.74 10*6/uL (4.10-5.10); RED CELL DISTRI WIDTH 13.3 % (0-14.5); WHITE BLOOD COUNT 9.7 10*3/uL (4.8-10.8)
[2017-05-11 11:44] LABS: INTERNATIONAL NORM RATIO 0.9 (2.0-3.5); PROTHROMBIN TIME 9.7 SECONDS (9.0-12.4)
[2017-05-11 11:49] LABS: ALBUMIN 3.5 gm/dl (3.1-4.5); ALKALINE PHOSPHATASE 77 U/L (45-117); BILIRUBIN, TOTAL 0.3 mg/dl (0.2-1.0); BUN 11 mg/dl (7-24); CARBON DIOXIDE 27 mmol/L (21-32); CHLORIDE 107 mmol/L (98-107); EST GLOM FILT AFRICAN AMERICAN > 60 ml/min; GLUCOSE 90 mg/dL (65-99); MAGNESIUM 2.4 mg/dL (1.5-2.1); POTASSIUM 4.3 mmol/L (3.5-5.1); SGOT/AST 11 IU/L (3-35); SGPT/ALT 17 U/L (12-78); SODIUM 141 mmol/L (136-145); TOTAL PROTEIN 6.9 gm/dL (6.4-8.2)
[2017-05-11 12:00] VITALS: BP 145/97
[2017-05-11 16:00] VITALS: BP 150/88
[2017-05-11 20:00] VITALS: BP 146/82; BP 150/88
[2017-05-12] VITALS: BP 138/72; BP 140/80
[2017-05-12 04:00] VITALS: BP 138/72
[2017-05-12 05:50] LABS: ALBUMIN 3.4 gm/dl (3.1-4.5); ALKALINE PHOSPHATASE 84 U/L (45-117); BILIRUBIN, TOTAL 0.4 mg/dl (0.2-1.0); BUN 15 mg/dl (7-24); CARBON DIOXIDE 23 mmol/L (21-32); CHLORIDE 108 mmol/L (98-107); CHOLESTEROL 249 mg/dL (<200); EST GLOM FILT AFRICAN AMERICAN > 60 ml/min; FREE T4 1.06 ng/dl (0.76-1.46); GLUCOSE 170 mg/dL (65-99); HDL CHOLESTEROL 71 mg/dl (40-60); LDL CHOLESTEROL 167 mg/dL (9-159); MAGNESIUM 2.4 mg/dL (1.5-2.1); PHOSPHOROUS 2.3 mg/dL (2.5-4.9); SGOT/AST 8 IU/L (3-35); SGPT/ALT 20 U/L (12-78); SODIUM 140 mmol/L (136-145); TOTAL PROTEIN 7.3 gm/dL (6.4-8.2); TRIGLYCERIDES 55 mg/dl (<150); VLDL CHOLESTEROL 11 mg/dL (6-40)
[2017-05-12 05:55] LABS: THYROID STIM HORMONE (HS) 0.775 uIU/ml (0.358-4.75)
[2017-05-12 06:06] LABS: BASO % 0.1 % (0.0-1.0); HEMATOCRIT 42.8 % (37.0-47.0); HEMOGLOBIN 14.2 g/dl (12.0-16.0); IG # 0.1 10*3/uL (0.0-0.1); LYMPH # 1.3 10*3/uL (1.3-4.4); LYMPH % 9.4 % (27.0-41.0); MEAN CELL VOLUME 87.3 fl (81.0-99.0); MEAN CORPUSCULAR HGB CONC 33.2 g/dl (33.0-37.0); MEAN PLATELET VOLUME 10.1 fl (9.6-12.3); MONO # 0.1 10*3/uL (0.1-1.0); MONO % 0.4 % (3.0-9.0); NEUT # 12.1 10*3/uL (2.3-7.9); NEUT % 89.4 % (47.0-73.0); PLATELET COUNT AUTOMATED 318 10*3/uL (130-400); RED CELL DISTRI WIDTH 13.2 % (0-14.5); WHITE BLOOD COUNT 13.5 10*3/uL (4.8-10.8)
[2017-05-12 06:12] LABS: HEMOGLOBIN A1c 5.9 % (4.8-5.6)
[2017-05-12 06:20] LABS: PROTHROMBIN TIME 10.3 SECONDS (9.0-12.4)
[2017-05-12 06:44] LABS: FOLIC ACID 9.27 ng/mL (>5.38); VITAMIN D, 25-HYDROXY 23.5 ng/mL (30-100)
[2017-05-12 08:00] VITALS: BP 130/88
[2017-05-12 12:00] VITALS: BP 112/74
[2017-05-12 16:00] VITALS: BP 112/74
[2017-05-12 20:00] VITALS: BP 124/71
[2017-05-13] VITALS: BP 135/79
[2017-05-13 06:05] LABS: HEMATOCRIT 40.5 % (37.0-47.0); MEAN CELL VOLUME 89.6 fl (81.0-99.0); MEAN CORPUSCULAR HGB 28.8 pg (27.0-31.0); MEAN CORPUSCULAR HGB CONC 32.1 g/dl (33.0-37.0); PLATELET COUNT AUTOMATED 288 10*3/uL (130-400); RED BLOOD COUNT 4.52 10*6/uL (4.10-5.10); RED CELL DISTRI WIDTH 13.5 % (0-14.5)
[2017-05-13 06:38] LABS: ALBUMIN 3.3 gm/dl (3.1-4.5); ALKALINE PHOSPHATASE 73 U/L (45-117); BILIRUBIN, TOTAL 0.2 mg/dl (0.2-1.0); BUN 19 mg/dl (7-24); CARBON DIOXIDE 21 mmol/L (21-32); CHLORIDE 108 mmol/L (98-107); EST GLOM FILT AFRICAN AMERICAN > 60 ml/min; GLUCOSE 194 mg/dL (65-99); POTASSIUM 4.8 mmol/L (3.5-5.1); SGOT/AST 13 IU/L (3-35); SGPT/ALT 14 U/L (12-78); SODIUM 141 mmol/L (136-145); TOTAL PROTEIN 6.7 gm/dL (6.4-8.2)
[2017-05-13 06:53] LABS: LYMPHOCYTE # 0.7 10*3/uL (1.3-4.4); METAMYELOCYTES 1 % (0-0); NEUTROPHIL # 16.2 10*3/uL (2.3-7.9); NEUTROPHILS 95 % (47-73); TOTAL CELLS COUNTED 100 #CELLS
[2017-05-13 06:54] LABS: PLATELET SUFFICIENCY NORMAL (NORMAL)
[2017-05-13 08:00] VITALS: BP 146/80
[2017-05-13 11:23] LABS: BILIRUBIN NEGATIVE (NEGATIVE); BLOOD 1+ (NEGATIVE); CLARITY CLEAR (CLEAR); COLOR YELLOW (YELLOW); GLUCOSE 3+ (NEGATIVE); KETONE NEGATIVE (NEGATIVE); LEUKO ESTERASE NEGATIVE (NEGATIVE); NITRITE NEGATIVE (NEGATIVE); PROTEIN NEGATIVE (NEGATIVE); SPECIFIC GRAVITY <= 1.005 (1.005-1.030); UROBILINOGEN 0.2 E.U./dl (0.2-1.0)
[2017-05-13 11:32] LABS: WBC 0-2 wbc/hpf (0-5)
[2017-05-13 12:00] VITALS: BP 136/82
[2017-05-13 16:00] VITALS: BP 122/80
[2017-05-13 20:00] VITALS: BP 162/76
[2017-05-14] VITALS: BP 160/94
[2017-05-14 04:00] VITALS: BP 143/81
[2017-05-14 06:25] LABS: HEMOGLOBIN 13.6 g/dl (12.0-16.0); MEAN CELL VOLUME 91.5 fl (81.0-99.0); MEAN CORPUSCULAR HGB 28.9 pg (27.0-31.0); MEAN CORPUSCULAR HGB CONC 31.6 g/dl (33.0-37.0); MEAN PLATELET VOLUME 10.4 fl (9.6-12.3); PLATELET COUNT AUTOMATED 300 10*3/uL (130-400); RED CELL DISTRI WIDTH 13.8 % (0-14.5); WHITE BLOOD COUNT 18.6 10*3/uL (4.8-10.8)
[2017-05-14 06:37] LABS: BUN 19 mg/dl (7-24); CARBON DIOXIDE 22 mmol/L (21-32); CHLORIDE 106 mmol/L (98-107); EST GLOM FILT AFRICAN AMERICAN > 60 ml/min; GLUCOSE 190 mg/dL (65-99); POTASSIUM 4.6 mmol/L (3.5-5.1); SODIUM 139 mmol/L (136-145)
[2017-05-14 06:44] LABS: LYMPHOCYTE # 0.6 10*3/uL (1.3-4.4); MONOCYTE # 0.2 10*3/uL (0.1-1.0); NEUTROPHIL # 17.9 10*3/uL (2.3-7.9); NEUTROPHILS 96 % (47-73); PLATELET SUFFICIENCY NORMAL (NORMAL); TOTAL CELLS COUNTED 100 #CELLS
[2017-05-14 08:00] VITALS: BP 131/74
[2017-05-14 12:00] VITALS: BP 137/76
[2017-05-14 16:00] VITALS: BP 147/90
[2017-05-14 20:00] VITALS: BP 149/73
[2017-05-15] VITALS: BP 148/92
[2017-05-15 08:00] VITALS: BP 138/91
[2017-05-15 12:00] VITALS: BP 134/81
[2017-05-15 16:00] VITALS: BP 135/82
[2017-05-15 20:00] VITALS: BP 151/94
[2017-05-16] VITALS: BP 139/82
[2017-05-16 06:36] LABS: ALBUMIN 3.2 gm/dl (3.1-4.5); ALKALINE PHOSPHATASE 64 U/L (45-117); BILIRUBIN, TOTAL 0.3 mg/dl (0.2-1.0); BUN 25 mg/dl (7-24); CARBON DIOXIDE 25 mmol/L (21-32); CHLORIDE 103 mmol/L (98-107); EST GLOM FILT AFRICAN AMERICAN > 60 ml/min; GLUCOSE 100 mg/dL (65-99); POTASSIUM 3.9 mmol/L (3.5-5.1); SGOT/AST 8 IU/L (3-35); SGPT/ALT 19 U/L (12-78); SODIUM 138 mmol/L (136-145); TOTAL PROTEIN 6.1 gm/dL (6.4-8.2)
[2017-05-16 06:40] LABS: HEMATOCRIT 41.2 % (37.0-47.0); HEMOGLOBIN 13.3 g/dl (12.0-16.0); MEAN CELL VOLUME 89.6 fl (81.0-99.0); MEAN CORPUSCULAR HGB 28.9 pg (27.0-31.0); MEAN CORPUSCULAR HGB CONC 32.3 g/dl (33.0-37.0); MEAN PLATELET VOLUME 9.7 fl (9.6-12.3); PLATELET COUNT AUTOMATED 312 10*3/uL (130-400); RED CELL DISTRI WIDTH 13.9 % (0-14.5); WHITE BLOOD COUNT 13.4 10*3/uL (4.8-10.8)
[2017-05-16 07:15] LABS: LYMPHOCYTE # 4.8 10*3/uL (1.3-4.4); MONOCYTE # 0.5 10*3/uL (0.1-1.0); NEUTROPHILS 60 % (47-73); PLATELET SUFFICIENCY NORMAL (NORMAL); TOTAL CELLS COUNTED 100 #CELLS
[2017-05-16 08:00] VITALS: BP 137/79
[2017-05-16 12:00] VITALS: BP 136/88
[2017-05-16] MEDS ORDERED: D-1000 185 MG-11 TAB PO (13:00)
[2017-05-16] MEDS ORDERED: PREDNISONE10 MG PO (13:00)
[2017-05-16] MEDS ORDERED: LEVAQUIN500 M2 PO (13:01)
== END 2017-05-16 14:07 | disposition home or self-care (01) | DRG 194 ==
LOC: RESCLI 02:36 → 4E 09:57 → RESCLI 15:05 → 4E 05-16 14:07
PROVIDERS: Family Medicine Adult Medicine; Hospitalist
DX: J18.9 Pneumonia, unspecified organism (principal); J45.51 Severe persistent asthma with (acute) exacerbation; Z68.43 Body mass index [BMI] 50.0-59.9, adult; E66.01 Morbid (severe) obesity due to excess calories; K21.9 Gastro-esophageal reflux disease without esophagitis; E55.9 Vitamin D deficiency, unspecified; D72.829 Elevated white blood cell count, unspecified; F17.210 Nicotine dependence, cigarettes, uncomplicated; J20.9 Acute bronchitis, unspecified; R60.0 Localized edema; Z79.899 Other long term (current) drug therapy; Z90.49 Acquired absence of other specified parts of digestive tract; Z83.6 Family history of other diseases of the respiratory system; Z80.0 Family history of malignant neoplasm of digestive organs; Z28.21 Immunization not carried out because of patient refusal

== ENCOUNTER → 2017-05-25 | Outpatient (CLI) | payer OTHER | END | disposition home or self-care (01) | LOC: RESCLI 02:56 | DX: J45.901 Unspecified asthma with (acute) exacerbation (principal); K21.9 Gastro-esophageal reflux disease without esophagitis; E66.01 Morbid (severe) obesity due to excess calories; J18.9 Pneumonia, unspecified organism; R06.02 Shortness of breath; E78.00 Pure hypercholesterolemia, unspecified; R60.0 Localized edema; E78.5 Hyperlipidemia, unspecified ==

== ENCOUNTER → 2017-05-30 | Outpatient (CLI) | payer OTHER | END | disposition home or self-care (01) | LOC: CARD 01:45 | DX: R06.02 Shortness of breath (principal); R60.0 Localized edema ==

== ENCOUNTER → 2017-06-22 | Outpatient (CLI) | payer OTHER | END | disposition home or self-care (01) | LOC: RESCLI 01:32 | DX: J44.9 Chronic obstructive pulmonary disease, unspecified (principal); J45.901 Unspecified asthma with (acute) exacerbation; K21.9 Gastro-esophageal reflux disease without esophagitis; E66.01 Morbid (severe) obesity due to excess calories; J18.9 Pneumonia, unspecified organism; R06.02 Shortness of breath; E78.00 Pure hypercholesterolemia, unspecified; R60.0 Localized edema; R10.13 Epigastric pain; Z87.891 Personal history of nicotine dependence ==

== ENCOUNTER → 2017-07-04 | Outpatient (CLI) | payer OTHER | END | disposition home or self-care (01) | LOC: RESCLI 02:05 | DX: J44.9 Chronic obstructive pulmonary disease, unspecified (principal); J45.901 Unspecified asthma with (acute) exacerbation; K21.9 Gastro-esophageal reflux disease without esophagitis; E66.01 Morbid (severe) obesity due to excess calories; E78.00 Pure hypercholesterolemia, unspecified; R60.0 Localized edema ==

== ENCOUNTER → 2017-08-03 | Outpatient (CLI) | payer OTHER | END | disposition home or self-care (01) | LOC: RESCLI 01:11 | DX: J44.9 Chronic obstructive pulmonary disease, unspecified (principal); I87.2 Venous insufficiency (chronic) (peripheral); K21.9 Gastro-esophageal reflux disease without esophagitis; E78.5 Hyperlipidemia, unspecified; J45.50 Severe persistent asthma, uncomplicated; E66.01 Morbid (severe) obesity due to excess calories; Z87.891 Personal history of nicotine dependence ==

== ENCOUNTER → 2017-08-22 | Outpatient (CLI) | payer OTHER ==
--- NOTE | 2017-08-22 13:36 | NUR ---
PT. WAS EVALUATED FOR HOME O2. PULSE OX ON R/A AT REST WAS 99%, HEART RATE 82. B/P 135/80. AUDIBLE WHEEZE. PT. AMBULATED IN THE [place] ON R/A, PULSE OX WAS 97%, HEART RATE INCREASING TO 120. NOTED SOB, PT. NEEDED TO STOP AND REST, CONINIUED TO AMBULATE ON R/A. PULSE OX REMAINING 97%. AUDIBLE WHEEZE WITH INCREASED WORK OF BREATHING. RECOVERY PULSE OX 97% R/A. HEART RATE 92, B/P 135/85. STAFF NOTIFIED.
--- NOTE | 2017-08-22 15:00 | NUR ---
PT GIVEN AEROSOL TREATMENT WITH UD OF DUONEB PER ORDER OF DR. MICHAEL. PULSE 83-80. RESP. RATE 16. LUNG SOUNDS ARE DIMINISHED. TOLERATED WELL.
== END | disposition home or self-care (01) ==
LOC: RESCLI 01:56
DX: J45.901 Unspecified asthma with (acute) exacerbation (principal); E66.01 Morbid (severe) obesity due to excess calories; J45.50 Severe persistent asthma, uncomplicated; E78.5 Hyperlipidemia, unspecified; K21.9 Gastro-esophageal reflux disease without esophagitis; I87.2 Venous insufficiency (chronic) (peripheral)

== ENCOUNTER → 2017-09-12 | Outpatient (CLI) | payer OTHER ==
[2017-09-12 14:21] LABS: BASO % 0.4 % (0.0-1.0); EOS # 0.3 10*3/uL (0.0-0.4); EOS % 3.8 % (1.0-4.0); HEMATOCRIT 43.9 % (37.0-47.0); HEMOGLOBIN 14.7 g/dl (12.0-16.0); LYMPH # 2.2 10*3/uL (1.3-4.4); MEAN CELL VOLUME 82.7 fl (81.0-99.0); MEAN CORPUSCULAR HGB 27.7 pg (27.0-31.0); MEAN CORPUSCULAR HGB CONC 33.5 g/dl (33.0-37.0); MEAN PLATELET VOLUME 9.9 fl (9.6-12.3); MONO # 0.4 10*3/uL (0.1-1.0); MONO % 4.6 % (3.0-9.0); NEUT # 4.9 10*3/uL (2.3-7.9); NEUT % 63.1 % (47.0-73.0); PLATELET COUNT AUTOMATED 346 10*3/uL (130-400); RED BLOOD COUNT 5.31 10*6/uL (4.10-5.10); RED CELL DISTRI WIDTH 13.8 % (0-14.5); WHITE BLOOD COUNT 7.7 10*3/uL (4.8-10.8)
[2017-09-12 14:38] LABS: ALBUMIN 3.8 gm/dl (3.1-4.5); ALKALINE PHOSPHATASE 101 U/L (45-117); BUN 11 mg/dl (7-24); CHLORIDE 103 mmol/L (98-107); CREATININE 0.95 mg/dL (0.55-1.02); POTASSIUM 3.5 mmol/L (3.5-5.1); SGOT/AST 25 IU/L (3-35); SGPT/ALT 60 U/L (12-78); SODIUM 138 mmol/L (136-145); TOTAL PROTEIN 7.8 gm/dL (6.4-8.2)
== END | disposition home or self-care (01) ==
LOC: RESCLI 01:59
PROVIDERS: Emergency Medicine
DX: R60.0 Localized edema (principal); J44.1 Chronic obstructive pulmonary disease with (acute) exacerbation; E66.01 Morbid (severe) obesity due to excess calories; J45.50 Severe persistent asthma, uncomplicated; E78.5 Hyperlipidemia, unspecified; K21.9 Gastro-esophageal reflux disease without esophagitis; F41.9 Anxiety disorder, unspecified

== ENCOUNTER → 2017-09-21 | Outpatient (CLI) | payer OTHER | LOC: RESCLI 02:14 | DX: E66.01 Morbid (severe) obesity due to excess calories (principal); J45.50 Severe persistent asthma, uncomplicated; E78.5 Hyperlipidemia, unspecified; K21.9 Gastro-esophageal reflux disease without esophagitis; J44.1 Chronic obstructive pulmonary disease with (acute) exacerbation; I87.2 Venous insufficiency (chronic) (peripheral); F41.9 Anxiety disorder, unspecified; Z87.891 Personal history of nicotine dependence ==

== ENCOUNTER 2017-09-28 10:21 | Emergency (ER) | payer OTHER ==
[~2017-09-28] VITALS: Ht 152.4 cm; Wt 128.8 kg
[2017-09-28 11:14] LABS: BASO % 0.4 % (0.0-1.0); EOS # 0.3 10*3/uL (0.0-0.4); EOS % 3.8 % (1.0-4.0); HEMATOCRIT 42.2 % (37.0-47.0); HEMOGLOBIN 13.6 g/dl (12.0-16.0); LYMPH # 2.1 10*3/uL (1.3-4.4); LYMPH % 25.9 % (27.0-41.0); MEAN CELL VOLUME 84.2 fl (81.0-99.0); MEAN CORPUSCULAR HGB 27.1 pg (27.0-31.0); MEAN CORPUSCULAR HGB CONC 32.2 g/dl (33.0-37.0); MEAN PLATELET VOLUME 9.8 fl (9.6-12.3); MONO # 0.4 10*3/uL (0.1-1.0); MONO % 5.3 % (3.0-9.0); NEUT # 5.2 10*3/uL (2.3-7.9); NEUT % 64.5 % (47.0-73.0); PLATELET COUNT AUTOMATED 343 10*3/uL (130-400); RED BLOOD COUNT 5.01 10*6/uL (4.10-5.10); RED CELL DISTRI WIDTH 13.8 % (0-14.5); WHITE BLOOD COUNT 8.1 10*3/uL (4.8-10.8)
[2017-09-28 11:29] LABS: ALBUMIN 3.5 gm/dl (3.1-4.5); ALKALINE PHOSPHATASE 106 U/L (45-117); BUN 9 mg/dl (7-24); CHLORIDE 104 mmol/L (98-107); CREATININE 0.81 mg/dL (0.55-1.02); POTASSIUM 3.9 mmol/L (3.5-5.1); SGOT/AST 13 IU/L (3-35); SGPT/ALT 37 U/L (12-78); SODIUM 138 mmol/L (136-145); TOTAL PROTEIN 7.3 gm/dL (6.4-8.2)
[2017-09-28] MEDS ORDERED: CLINDAMYCIN HC300 MG PO (13:43)
[2017-09-28] MEDS ORDERED: NORCO 5-325 TA1 EACH PO (13:48)
== END 2017-09-28 15:09 | disposition home or self-care (01) ==
LOC: EDSTATUS 10:21 → ED 10:22 → RESCLI 12:43 → ED 15:09
PROVIDERS: Physician Assistant
DX: L03.116 Cellulitis of left lower limb (principal); Z90.89 Acquired absence of other organs

== ENCOUNTER → 2017-10-05 | Outpatient (CLI) | payer OTHER ==
[~2017-10-05] MED LIST changes: +CLINDAMYCIN HC300 MG PO; +NORCO 5-325 TA1 EACH PO
== END | disposition home or self-care (01) ==
LOC: RESCLI 01:23
DX: J44.9 Chronic obstructive pulmonary disease, unspecified (principal); K21.9 Gastro-esophageal reflux disease without esophagitis; E78.5 Hyperlipidemia, unspecified; R60.0 Localized edema; G47.33 Obstructive sleep apnea (adult) (pediatric); I87.2 Venous insufficiency (chronic) (peripheral); E66.01 Morbid (severe) obesity due to excess calories; Z87.891 Personal history of nicotine dependence

== ENCOUNTER → 2017-10-18 | Outpatient (CLI) | payer OTHER | END | disposition home or self-care (01) | LOC: RESCLI 03:35 | DX: J44.9 Chronic obstructive pulmonary disease, unspecified (principal); R60.0 Localized edema; F41.9 Anxiety disorder, unspecified; E55.9 Vitamin D deficiency, unspecified; K21.9 Gastro-esophageal reflux disease without esophagitis; E66.01 Morbid (severe) obesity due to excess calories; E78.5 Hyperlipidemia, unspecified ==

== ENCOUNTER → 2017-10-31 | Day surgery (SDC) | payer OTHER ==
[~2017-10-31] VITALS: Ht 152.4 cm; Wt 127.0 kg
[~2017-10-31] MED LIST changes: +ALPRAZOLAM1 M2 PO; +SPIRIVA RESPIMAT4 G1 INH
--- NOTE | ~2017-10-31 | PROC NOTE ---
[place], [place] PROCEDURE NOTE NAME: MANUEL MUSA UNIT #: [id number] ROOM: DOCTOR: PAULO STANFORD MD,KERRIE BIRTHDATE: [birth year] DOS: 10/31/2017 PREOPERATIVE DIAGNOSIS: The patient's nonresolving respiratory symptoms with ongoing severe cough and wheezing and bronchial asthma. POSTOPERATIVE DIAGNOSES: Removal of moderate mucus impaction noted in endobronchial tree bilaterally, greater in the left than the right side. COMPLICATIONS: None. PROCEDURE DESCRIPTION: Informed consent was obtained from the patient. The patient was brought to the OR and placed in supine position. Conscious sedation administered by the Anesthesia Department. After achieving appropriate sedation, airway introduced into the mouth. Bronchoscope advanced to the airway into laryngeal area. Epiglottis and vocal cords were seen. Vocal cords were noted yellowish in color, moving symmetrical movements. Bronchoscope advanced to vocal cord and tracheal lumen, moderate amount of thick mucus secretion present, which were suctioned out at the heraclio level. Right upper, right middle, right lower, left upper, lingular lower lobe bronchi were all examined. Moderate amount of mucus plug was noted, greater on the left than the right endobronchial tree. Diluted 10 mL of 2% lidocaine was also lavaged in the trachea and bronchi to decrease the coughing. All the mucus plugs were removed. The BAL specimen was obtained in the right lower lobe bronchus without any difficulty, basilar bronchi. Procedure was well tolerated by the patient without any complications. Postoperative findings were discussed with the patient's mother in detail in the recovery room. KERRIE BATES MD CM:PROCNOTE:PROCEDURE NOTE [id number] KERRIE STANFORD MD
[2017-10-31 08:15] VITALS: BP 166/64
[2017-10-31 09:28] VITALS: BP 120/72
[2017-10-31 09:43] VITALS: BP 106/53
[2017-10-31 09:58] VITALS: BP 107/645
[2017-10-31 11:01] LABS: BF LYMPHOCYTES 13 %; BF MACROPHAGES 75 %; BF NEUTROPHILS 10 %
[2017-11-01 13:08] LABS: ACID FAST SMEAR Negative (.); ACID FAST SPEC PROCESSING Concentration (.)
== END ==
LOC: SDC 10-28 08:45
PROVIDERS: Internal Medicine Critical Care Medicine
DX: J98.09 Other diseases of bronchus, not elsewhere classified (principal); J44.9 Chronic obstructive pulmonary disease, unspecified; K21.9 Gastro-esophageal reflux disease without esophagitis; F41.9 Anxiety disorder, unspecified; Z98.890 Other specified postprocedural states; Z87.891 Personal history of nicotine dependence

== ENCOUNTER → 2017-12-16 | Outpatient (CLI) | payer OTHER | END | disposition home or self-care (01) | LOC: LAB 09:13 | DX: R53.83 Other fatigue (principal) ==

== ENCOUNTER → 2018-03-08 | Outpatient (CLI) | payer OTHER | END | disposition home or self-care (01) | LOC: RESCLI 00:27 | DX: I87.2 Venous insufficiency (chronic) (peripheral) (principal); K21.9 Gastro-esophageal reflux disease without esophagitis; J44.9 Chronic obstructive pulmonary disease, unspecified; E78.5 Hyperlipidemia, unspecified; E66.01 Morbid (severe) obesity due to excess calories; E55.9 Vitamin D deficiency, unspecified; G47.33 Obstructive sleep apnea (adult) (pediatric); F41.9 Anxiety disorder, unspecified; R60.0 Localized edema; Z87.891 Personal history of nicotine dependence ==

== ENCOUNTER → 2019-10-08 | Outpatient (CLI) | payer OTHER | END | disposition home or self-care (01) | LOC: RAD 15:04 | DX: M16.12 Unilateral primary osteoarthritis, left hip (principal); J45.909 Unspecified asthma, uncomplicated; I89.0 Lymphedema, not elsewhere classified; E66.01 Morbid (severe) obesity due to excess calories; J98.11 Atelectasis; Z68.43 Body mass index [BMI] 50.0-59.9, adult ==

== ENCOUNTER 2020-05-23 11:32 | Emergency (ER) | payer OTHER ==
[~2020-05-23] VITALS: Ht 152.4 cm; Wt 136.1 kg
[2020-05-23 13:24] LABS: BASO % 0.5 % (0.0-1.0); EOS # 0.1 10*3/uL (0.0-0.4); EOS % 1.5 % (1.0-4.0); HEMATOCRIT 44.7 % (37.0-47.0); LYMPH # 2.1 10*3/uL (1.3-4.4); LYMPH % 25.9 % (27.0-41.0); MEAN CORPUSCULAR HGB CONC 30.6 g/dl (33.0-37.0); MONO # 0.4 10*3/uL (0.1-1.0); MONO % 5.4 % (3.0-9.0); NEUT # 5.4 10*3/uL (2.3-7.9); NEUT % 66.3 % (47.0-73.0); PLATELET COUNT AUTOMATED 301 10*3/uL (130-400); RED BLOOD COUNT 5.08 10*6/uL (4.10-5.10); RED CELL DISTRI WIDTH 14.7 % (0-14.5); WHITE BLOOD COUNT 8.2 10*3/uL (4.8-10.8)
[2020-05-23 13:32] LABS: BILIRUBIN NEGATIVE (NEGATIVE); BLOOD 1+ (NEGATIVE); CLARITY CLEAR (CLEAR); COLOR YELLOW (YELLOW); GLUCOSE NEGATIVE (NEGATIVE); KETONE NEGATIVE (NEGATIVE); SPECIFIC GRAVITY 1.025 (1.005-1.030)
[2020-05-23 13:33] LABS: LEUKO ESTERASE TRACE (NEGATIVE); NITRITE NEGATIVE (NEGATIVE); UROBILINOGEN 0.2 E.U./dl (0.2-1.0)
[2020-05-23 13:35] LABS: BACTERIA 2+; RBC 16-20 rbc/hpf (0-2)
[2020-05-23 13:40] LABS: ALBUMIN 3.5 gm/dl (3.1-4.5); ALKALINE PHOSPHATASE 99 U/L (45-117); BUN 14 mg/dl (7-24); CHLORIDE 108 mmol/L (98-107); CREATININE 0.87 mg/dL (0.55-1.02); LIPASE 109 U/L (73-393); POTASSIUM 3.9 mmol/L (3.5-5.1); SGOT/AST 9 IU/L (3-35); SGPT/ALT 23 U/L (12-78); SODIUM 137 mmol/L (136-145); TOTAL PROTEIN 7.5 gm/dL (6.4-8.2)
[2020-05-23] MEDS ORDERED: OMEPRAZOLE10 MG PO (17:27)
[2020-05-23] MEDS ORDERED: CEFUROXIME AXE500 MG PO (17:27)
== END 2020-05-23 17:12 | disposition home or self-care (01) ==
LOC: ED 11:32
PROVIDERS: Physician Assistant
DX: R10.13 Epigastric pain (principal); R11.0 Nausea; J44.9 Chronic obstructive pulmonary disease, unspecified; K21.9 Gastro-esophageal reflux disease without esophagitis; J45.909 Unspecified asthma, uncomplicated; F17.200 Nicotine dependence, unspecified, uncomplicated; Z79.899 Other long term (current) drug therapy

== ENCOUNTER → 2020-05-27 | Outpatient (CLI) | payer OTHER ==
[~2020-05-27] MED LIST changes: +CEFUROXIME AXE500 MG PO; +OMEPRAZOLE10 MG PO
[2020-05-27 18:58] LABS: BASO % 0.4 % (0.0-1.0); EOS # 0.2 10*3/uL (0.0-0.4); EOS % 1.6 % (1.0-4.0); HEMATOCRIT 43.7 % (37.0-47.0); LYMPH # 2.6 10*3/uL (1.3-4.4); LYMPH % 24.1 % (27.0-41.0); MEAN CELL VOLUME 85.5 fl (81.0-99.0); MEAN CORPUSCULAR HGB 26.8 pg (27.0-31.0); MEAN CORPUSCULAR HGB CONC 31.4 g/dl (33.0-37.0); MEAN PLATELET VOLUME 10.3 fl (9.6-12.3); MONO # 0.6 10*3/uL (0.1-1.0); MONO % 5.1 % (3.0-9.0); NEUT # 7.4 10*3/uL (2.3-7.9); NEUT % 68.3 % (47.0-73.0); PLATELET COUNT AUTOMATED 351 10*3/uL (130-400); RED BLOOD COUNT 5.11 10*6/uL (4.10-5.10); WHITE BLOOD COUNT 10.8 10*3/uL (4.8-10.8)
[2020-05-27 19:14] LABS: ALBUMIN 3.4 gm/dl (3.1-4.5); ALKALINE PHOSPHATASE 93 U/L (45-117); BUN 23 mg/dl (7-24); CHLORIDE 110 mmol/L (98-107); CREATININE 0.87 mg/dL (0.55-1.02); LIPASE 142 U/L (73-393); SGOT/AST 8 IU/L (3-35); SGPT/ALT 20 U/L (12-78); SODIUM 138 mmol/L (136-145); TOTAL PROTEIN 7.4 gm/dL (6.4-8.2)
[2020-05-28 13:06] LABS: H.PYLORI IgA <9.0 units (0.0-8.9)
[2020-05-28 17:09] LABS: H.PYLORI IGM <9.0 units (0.0-8.9)
[2020-05-29 08:11] LABS: H PYLORI IGG AB 0.37 (0.00-0.79)
== END | disposition home or self-care (01) ==
LOC: LAB 18:02
PROVIDERS: Nurse Practitioner Family
DX: R10.12 Left upper quadrant pain (principal); E66.9 Obesity, unspecified

== ENCOUNTER → 2020-05-29 | Outpatient (CLI) | payer OTHER | END | disposition home or self-care (01) | LOC: RAD 07:47 | DX: R10.12 Left upper quadrant pain (principal) ==

== ENCOUNTER 2020-09-13 21:14 | Emergency (ER) | payer OTHER ==
[2020-09-13 22:17] LABS: BASO % 0.3 % (0.0-1.0); EOS # 0.2 10*3/uL (0.0-0.4); EOS % 1.7 % (1.0-4.0); HEMATOCRIT 42.8 % (37.0-47.0); LYMPH # 2.9 10*3/uL (1.3-4.4); LYMPH % 26.8 % (27.0-41.0); MEAN CELL VOLUME 86.1 fl (81.0-99.0); MEAN CORPUSCULAR HGB 26.8 pg (27.0-31.0); MEAN CORPUSCULAR HGB CONC 31.1 g/dl (33.0-37.0); MEAN PLATELET VOLUME 10.4 fl (9.6-12.3); MONO # 0.7 10*3/uL (0.1-1.0); MONO % 6.1 % (3.0-9.0); NEUT # 6.9 10*3/uL (2.3-7.9); NEUT % 64.8 % (47.0-73.0); PLATELET COUNT AUTOMATED 315 10*3/uL (130-400); RED BLOOD COUNT 4.97 10*6/uL (4.10-5.10); RED CELL DISTRI WIDTH 14.9 % (0-14.5); WHITE BLOOD COUNT 10.6 10*3/uL (4.8-10.8)
[2020-09-13 22:27] LABS: INTERNATIONAL NORM RATIO 0.9 (2.0-3.5)
[2020-09-13 22:35] LABS: ALBUMIN 3.6 gm/dl (3.1-4.5); ALKALINE PHOSPHATASE 87 U/L (45-117); BUN 16 mg/dl (7-24); CHLORIDE 112 mmol/L (98-107); CREATININE 0.92 mg/dL (0.55-1.02); POTASSIUM 3.7 mmol/L (3.5-5.1); SGOT/AST 8 IU/L (3-35); SODIUM 142 mmol/L (136-145)
[2020-09-13 22:42] LABS: SGPT/ALT 20 U/L (12-78)
[2020-09-13 22:49] LABS: TROPONIN I < 0.015 ng/ml (<0.045)
== END 2020-09-14 07:40 | disposition short-term general hospital (02) ==
LOC: ED 21:14
PROVIDERS: Emergency Medicine
DX: I63.9 Cerebral infarction, unspecified (principal); J44.9 Chronic obstructive pulmonary disease, unspecified; K21.9 Gastro-esophageal reflux disease without esophagitis; F41.9 Anxiety disorder, unspecified; Z79.899 Other long term (current) drug therapy

== ENCOUNTER 2020-09-29 17:15 | Emergency (ER) | payer OTHER ==
[2020-09-29 20:32] LABS: BASO % 0.1 % (0.0-1.0); EOS % 0.1 % (1.0-4.0); HEMATOCRIT 41.1 % (37.0-47.0); MEAN CELL VOLUME 83.4 fl (81.0-99.0); MEAN CORPUSCULAR HGB 26.8 pg (27.0-31.0); MEAN CORPUSCULAR HGB CONC 32.1 g/dl (33.0-37.0); MEAN PLATELET VOLUME 10.3 fl (9.6-12.3); MONO # 0.3 10*3/uL (0.1-1.0); MONO % 2.2 % (3.0-9.0); NEUT # 12.7 10*3/uL (2.3-7.9); NEUT % 84.1 % (47.0-73.0); PLATELET COUNT AUTOMATED 295 10*3/uL (130-400); RED BLOOD COUNT 4.93 10*6/uL (4.10-5.10); RED CELL DISTRI WIDTH 14.3 % (0-14.5); WHITE BLOOD COUNT 15.1 10*3/uL (4.8-10.8)
[2020-09-29 20:46] LABS: ALBUMIN 3.2 gm/dl (3.1-4.5); ALKALINE PHOSPHATASE 91 U/L (45-117); BUN 14 mg/dl (7-24); CHLORIDE 108 mmol/L (98-107); CREATININE 0.89 mg/dL (0.55-1.02); POTASSIUM 3.8 mmol/L (3.5-5.1); SGOT/AST 8 IU/L (3-35); SGPT/ALT 21 U/L (12-78); SODIUM 140 mmol/L (136-145); TOTAL PROTEIN 6.6 gm/dL (6.4-8.2)
== END 2020-09-29 23:00 | disposition home or self-care (01) ==
LOC: ED 17:15
PROVIDERS: Emergency Medicine
DX: R51.9 Headache, unspecified (principal); K21.9 Gastro-esophageal reflux disease without esophagitis; J44.9 Chronic obstructive pulmonary disease, unspecified; Z79.899 Other long term (current) drug therapy; Z87.891 Personal history of nicotine dependence

== ENCOUNTER 2020-10-19 09:04 | Emergency (ER) | payer OTHER ==
[~2020-10-19] VITALS: Ht 152.4 cm; Wt 136.1 kg
[2020-10-19] MEDS ORDERED: BACLOFEN5 MG PO (09:13)
[2020-10-19] MEDS ORDERED: GABAPENTIN100 M2 PO (09:13)
[2020-10-19] MEDS ORDERED: DULERA100 INH (09:14)
[2020-10-19] MEDS ORDERED: SINGULAIR5 MG PO (09:14)
[2020-10-19] MEDS ORDERED: ZOFRAN4 MG PO (09:14)
[2020-10-19] MEDS ORDERED: LIPITOR10 MG PO (09:14)
[2020-10-19] MEDS ORDERED: PROVENTIL HFA6.7 GM INH (09:15)
[2020-10-19 09:43] LABS: BASO % 0.2 % (0.0-1.0); EOS % 0.3 % (1.0-4.0); HEMATOCRIT 42.2 % (37.0-47.0); LYMPH # 1.6 10*3/uL (1.3-4.4); LYMPH % 15.2 % (27.0-41.0); MEAN CELL VOLUME 87.7 fl (81.0-99.0); MEAN CORPUSCULAR HGB 27.2 pg (27.0-31.0); MEAN PLATELET VOLUME 9.9 fl (9.6-12.3); MONO # 0.4 10*3/uL (0.1-1.0); MONO % 3.9 % (3.0-9.0); NEUT # 8.3 10*3/uL (2.3-7.9); NEUT % 80.1 % (47.0-73.0); PLATELET COUNT AUTOMATED 311 10*3/uL (130-400); RED BLOOD COUNT 4.81 10*6/uL (4.10-5.10); RED CELL DISTRI WIDTH 14.6 % (0-14.5); WHITE BLOOD COUNT 10.4 10*3/uL (4.8-10.8)
[2020-10-19 09:54] LABS: ACT PARTIAL THROMBO TIME 25.2 SECONDS (20.0-32.1)
[2020-10-19 10:06] LABS: ALBUMIN 3.2 gm/dl (3.1-4.5); ALKALINE PHOSPHATASE 112 U/L (45-117); BUN 12 mg/dl (7-24); CHLORIDE 109 mmol/L (98-107); LIPASE 97 U/L (73-393); POTASSIUM 4.4 mmol/L (3.5-5.1); SGOT/AST 8 IU/L (3-35); SGPT/ALT 21 U/L (12-78); SODIUM 142 mmol/L (136-145); TOTAL PROTEIN 6.1 gm/dL (6.4-8.2)
[2020-10-19 10:12] LABS: TROPONIN I < 0.015 ng/ml (<0.045)
[2020-10-19 10:24] LABS: BILIRUBIN Negative (Negative); BLOOD Negative (Negative); CLARITY Cloudy (Clear); COLOR Yellow (Yellow); GLUCOSE Negative (Negative); KETONE Negative (Negative); LEUKO ESTERASE Negative (Negative); NITRITE Negative (Negative); PH 7.5 (4.5-8.0); UROBILINOGEN 0.2 E.U./dl (0.0-1.0)
[2020-10-19 10:32] LABS: BACTERIA TRACE; EPITHELIAL CELLS 0-2; MUCOUS 1+; WBC 0-2 wbc/hpf (0-5)
== END 2020-10-19 14:00 | disposition short-term general hospital (02) ==
LOC: ED 09:04
PROVIDERS: Nurse Practitioner Family
DX: M62.81 Muscle weakness (generalized) (principal); J44.9 Chronic obstructive pulmonary disease, unspecified; K21.9 Gastro-esophageal reflux disease without esophagitis; F41.9 Anxiety disorder, unspecified; Z88.2 Allergy status to sulfonamides; Z79.899 Other long term (current) drug therapy; Z90.89 Acquired absence of other organs; Z87.891 Personal history of nicotine dependence

== ENCOUNTER 2020-11-14 11:38 | Emergency (ER) | payer OTHER ==
[~2020-11-14] VITALS: Ht 152.4 cm; Wt 136.1 kg
[~2020-11-14 11:38] MED LIST changes: +BACLOFEN5 MG PO; +DULERA100 INH; +GABAPENTIN100 M2 PO; +LIPITOR10 MG PO; +PROVENTIL HFA6.7 GM INH; +SINGULAIR5 MG PO; +ZOFRAN4 MG PO
[2020-11-14 12:49] LABS: BASO % 0.1 % (0.0-1.0); EOS % 0.1 % (1.0-4.0); HEMATOCRIT 42.1 % (37.0-47.0); MEAN CELL VOLUME 86.1 fl (81.0-99.0); MEAN CORPUSCULAR HGB CONC 31.4 g/dl (33.0-37.0); MEAN PLATELET VOLUME 9.8 fl (9.6-12.3); MONO # 0.4 10*3/uL (0.1-1.0); NEUT % 81.4 % (47.0-73.0); PLATELET COUNT AUTOMATED 400 10*3/uL (130-400); RED BLOOD COUNT 4.89 10*6/uL (4.10-5.10); RED CELL DISTRI WIDTH 15.6 % (0-14.5); WHITE BLOOD COUNT 7.4 10*3/uL (4.8-10.8)
[2020-11-14 13:07] LABS: ALBUMIN 2.9 gm/dl (3.1-4.5); ALKALINE PHOSPHATASE 93 U/L (45-117); BUN 7 mg/dl (7-24); CHLORIDE 112 mmol/L (98-107); POTASSIUM 4.2 mmol/L (3.5-5.1); SGOT/AST 18 IU/L (3-35); SGPT/ALT 56 U/L (12-78); SODIUM 143 mmol/L (136-145); TOTAL PROTEIN 6.5 gm/dL (6.4-8.2)
[2020-11-14] MEDS ORDERED: ZANAFLEX2 M1 PO (14:46)
== END 2020-11-14 15:18 | disposition home or self-care (01) ==
LOC: ED 11:38
PROVIDERS: Nurse Practitioner
DX: G35 Multiple sclerosis (principal); M62.838 Other muscle spasm; E66.01 Morbid (severe) obesity due to excess calories; J44.9 Chronic obstructive pulmonary disease, unspecified; K21.9 Gastro-esophageal reflux disease without esophagitis; F41.9 Anxiety disorder, unspecified; Z79.899 Other long term (current) drug therapy; Z88.2 Allergy status to sulfonamides; Z90.89 Acquired absence of other organs; Z87.891 Personal history of nicotine dependence

== ENCOUNTER → 2021-08-04 | Outpatient (CLI) | payer OTHER ==
[~2021-08-04] MED LIST changes: +ZANAFLEX2 M1 PO
== END | disposition home or self-care (01) ==
LOC: US 07-28 11:00
PROVIDERS: ATTEND Nurse Practitioner Women's Health
DX: N92.0 Excessive and frequent menstruation with regular cycle (principal)

== ENCOUNTER → 2024-04-27 | Outpatient (CLI) | payer OTHER ==
[2024-04-27 13:49] LABS: ALKALINE PHOSPHATASE 88 U/L (46-116); BUN 6 mg/dl (9-23); CHLORIDE 111 mmol/L (98-107); POTASSIUM 2.9 mmol/L (3.4-5.1); SGPT/ALT 14 U/L (5-49); TOTAL PROTEIN 6.2 gm/dL (6.0-8.0)
== END | disposition home or self-care (01) ==
LOC: LAB 12:40
PROVIDERS: ATTEND Internal Medicine
DX: R19.7 Diarrhea, unspecified (principal)